=== PATIENT | female | born 1975 | race Caucasian/White ===

== ENCOUNTER 2016-10-05 14:34 | Emergency (ER) | payer SELFPAY ==
[2016-10-05 14:52] VITALS: TEMP 98; O2SAT 98
[2016-10-05] MEDS ORDERED: cefTRIAXone SODIUM 1 GM VIAL IM ONE (15:15)
[2016-10-05] MEDS ORDERED: methylPREDNISolone ACETATE 80 MG/ML VIAL IM ONE (15:15)
[2016-10-05] MEDS ORDERED: LIDOCAINE 1% 10 ML VIAL INJ ONE (15:17)
--- NOTE | 2016-10-05 16:08 | ED.PDOC ---
History of Present Illness - General Chief Complaint: Back Pain or Injury Stated Complaint: rib/back pain Time Seen by Provider: 10/05/16 14:59 Source: patient Exam Limitations: no limitations Additional Information: 3 WKS COUGH, R FACIAL/SINUS CONGESTION. COUGH NOW CAUSING R-SIDED PAIN. NOT SEEN DR OR HAD ABX YET. - History of Present Illness Severity: moderate Improving Factors: nothing Worsening Factors: other - COUGH Associated Symptoms: cough Allergies/Adverse Reactions: Allergies Povidone Iodine [From Betadine] Allergy (Verified 10/05/16 14:52) Guaifenesin Adverse Reaction (Verified 10/05/16 14:53) Home Medications: Ambulatory Orders Amoxicillin & Pot Clavulanate [Augmentin] 875 mg PO BID #20 tab 10/05/16 Dicyclomine HCl [Bentyl] 20 mg PO DAILY 10/05/16 Methylprednisolone [Medrol Dose Amadou] 4 mg PO DAILY #1 tab 10/05/16 Review of Systems - Review of Systems Constitutional: Denies: chills, fever EENTM: Denies: ear pain, throat pain Respiratory: States: cough. Denies: short of breath, stridor, wheezing Cardiology: States: no symptoms reported. Denies: chest pain Gastrointestinal/Abdominal: States: no symptoms reported Genitourinary: States: no symptoms reported. Denies: dysuria, frequency, hematuria Musculoskeletal: States: back pain. Denies: neck pain Skin: States: no symptoms reported Neurological: States: no symptoms reported. Denies: paresthesia, tingling Endocrine: States: no symptoms reported Hematologic/Lymphatic: States: no symptoms reported All other Systems: Reviewed and Negative Past Medical History (General) - Patient Medical History Hx Seizures: No Hx Stroke: No Hx Dementia: No Hx Asthma: Yes Hx of COPD: No Hx Cardiac Disorders: No Hx Congestive Heart Failure: No Hx Pacemaker: No Hx Hypertension: No Hx Thyroid Disease: No Hx Diabetes: No Hx Gastroesophageal Reflux: No Hx Cancer: No Hx of HIV: No Hx Hepatitis C: No Hx MRSA: No - Vaccination History Hx Tetanus, Diphtheria Vaccination: No Hx Influenza Vaccination: No Hx Pneumococcal Vaccination: No - Social History Hx Tobacco Use: Yes Hx Chewing Tobacco Use: No Hx Alcohol Use: No Hx Substance Use: No Hx Substance Use Treatment: No Hx Depression: No Hx Physical Abuse: No Hx Emotional Abuse: No Hx Suspected Abuse: No - Activities of Daily Living Hospice Agency (if applicable):: None - Female History Patient is a Female of Child Bearing Age (10 -59 yrs old): No Patient : No Family Medical History - Family History Maternal Family History: Unknown Physical Exam - Physical Exam General Appearance: Alert, Well Hydrated, Well Nourished Eye Exam: bilateral normal Ears, Nose, Throat: hearing grossly normal, normal pharynx, sinus pain/drainage Neck: non-tender, full range of motion, supple Respiratory: chest non-tender, lungs clear Cardiovascular/Chest: normal peripheral pulses, no edema, no JVD, no murmur Peripheral Pulses: radial,right: 2+, radial,left: 2+ Gastrointestinal/Abdominal: normal bowel sounds, non tender, soft Back Exam: no vertebral tenderness, other - R Rib muscular tenderness. 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 GAVE DEPOMEDROL, ROCEPHIN, AUGMENTIN, MEDROL DOSE PACK. Departure - Departure Clinical Impression: Acute sinusitis, Cough, Rib pain on right side, Tobacco use Disposition: Discharge to Home or Self Care Condition: Good Departure Forms: ED Discharge - Pt. Copy, Patient Portal Self Enrollment Diet: resume usual diet Activity: increase activity as tolerated Referrals: [Primary Care Provider] - 1-5 Days Prescriptions: Amoxicillin & Pot Clavulanate [Augmentin] 875 mg PO BID #20 tab Methylprednisolone [Medrol Dose Amadou] 4 mg PO DAILY #1 tab Home Medications: Ambulatory Orders Amoxicillin & Pot Clavulanate [Augmentin] 875 mg PO BID #20 tab 10/05/16 Dicyclomine HCl [Bentyl] 20 mg PO DAILY 10/05/16 Methylprednisolone [Medrol Dose Amadou] 4 mg PO DAILY #1 tab 10/05/16 Additional Instructions: The antibiotics (Augmentin) and steroid pack will help your sinus infection, cough, and rib pain.
[2016-10-05 16:51] VITALS: BP 148/84
== END 2016-10-05 16:25 | disposition home or self-care (01) ==
LOC: ER 14:34
DX: J01.90 Acute sinusitis, unspecified (principal); R07.81 Pleurodynia; F17.200 Nicotine dependence, unspecified, uncomplicated; J45.909 Unspecified asthma, uncomplicated; Z88.8 Allergy status to other drugs, medicaments and biological substances
CPT/HCPCS: J0696; J1030